=== PATIENT | female | born 1950 | race Caucasian/White ===

== ENCOUNTER 2016-07-22 19:17 | Emergency (ER) | payer MEDICARE, OTHER ==
[~2016-07-22] VITALS: Ht 165.1 cm; Wt 100.0 kg
[~2016-07-22 19:17] MED LIST: FISH1000 PO; PAXI20TA26 PO; SIMV20 PO
[2016-07-22] MEDS ORDERED: SODIUM CHLOR 0.9% 1000 ML INJ 1,000 ML IV SCH (19:31)
[2016-07-22 19:35] VITALS: BP 146/66; PULSE 65; RESP 18; TEMP 98.2; O2SAT 98
[2016-07-22 19:39] VITALS: O2SAT 93
--- NOTE | 2016-07-22 19:43 | PD ---
HPI Chief Complaint: GI Complaint Time Seen by Provider: 19:30 Travel History International Travel<30 days: No Contact w/Intl Traveler<30days: No Traveled to known affect area: No History of Present Illness HPI 66-year-old female presents to the emergency department from home by EMS transport for evaluation of syncopal episode witnessed by spouse patient was having a diarrheal stool on the toilet. According to the patient who is awake and able to relay her own history; last evening started noticing some abdominal discomfort which was on and off overnight this seemed to resolve and then today was active rode her bicycle; had a peanut butter for breakfast and then had a hamburger at lunchtime, and then later thereafter started having nausea and diarrhea and vomiting. No hematemesis, no coffee-ground emesis, no bilious emesis, no melena, or hematochezia. Patient states while she was on the toilet she had copious diarrhea and then felt as if she needed to continue to have diarrhea but no stool was noted and as she rested back she started to feel funny yelled out for her in the next thing she realized she was awakening on the floor with her over top of her. According to EMS report has been did not witness any seizure activity. According to EMS report en route to the hospital she was incontinent of stool. Patient had ongoing nausea without vomiting receive one dose of Zofran and symptoms seem to improve. Patient here denies any pain. No headache no confusion no visual disturbance no chest pain no palpitations no shortness of breath no abdominal pain no back pain no flank pain no upper or lower extremity numbness tingling or weakness. Patient has history of dyslipidemia. Patient denies personal history of CAD, hypertension, diabetes, peptic ulcer disease, pancreatitis, or gallbladder disease. [facility] Past Medical History Narrative Medical Dyslipidemia, kidney stones, cholecystectomy, bladder surgery, prior tobacco use ; nursing notes reviewed Blood Disorders: No Cancer: No Cardiovascular Problems: No Endocrine: No Immune Disorder: No Kidney Stones: Yes (WITH SURGICAL INTERVENTION) Musculoskeletal: No Neurologic: No Psychiatric: No Respiratory: No ?: Not Past Surgical History AICD: No Arteriovenous Shunt: No Cholecystectomy: Yes Genitourinary Surgery: Yes (BLADDER SUREGERY) Hysterectomy: Yes Insulin Pump: No Joint Replacement: No Pacemaker: No Social History Alcohol Use: No Tobacco Use: Yes (1/2 PPD) Substance Use: No Allergies-Medications (Allergen,Severity, Reaction): Coded Allergies: No Known Allergies (Verified , 11/05/10) Reported Meds & Prescriptions Reported Meds & Active Scripts Active Reported Multi Vitamin (Multiple Vitamin) 1 Tab Tab 1 Tab PO DAILY Levothyroxine (Levothyroxine Sodium) 100 Mcg Tab 100 Mcg PO DAILY Paxil (Paroxetine HCl) 20 Mg Tab 20 Mg PO DAILY Simvastatin 40 Mg Tab 40 Mg PO HS Review of Systems Except as stated in HPI: all other systems reviewed are Neg General / Constitutional: No: Fever, Chills HENT: No: Vertigo, Lightheadedness, Congestion Cardiovascular: Positive: Syncope, No: Chest Pain or Discomfort, Palpitations , Diaphoresis, Dyspnea on exertion Respiratory: No: Shortness of Breath Gastrointestinal: Positive: Nausea, Vomiting, Diarrhea, Abdominal Pain ( intermittent with vomiting or with diarrhea) Genitourinary: No: Urgency, Frequency, Dysuria Musculoskeletal: No: Myalgias, Arthralgias Skin: No Rash Neurologic: Positive: Weakness, Syncope, No: Dizziness, Focal Abnormalities, Coordination Problem, Ataxia, Headache, Change in Mentation, Slurred Speech, Paresthesia, Incontinence, Seizures Psychiatric: No: Anxiety Endocrine: No: Heat Intolerance, Cold Intolerance Hematologic/Lymphatic: No: Easy Bruising Physical Exam Narrative GENERAL: Well-developed well-nourished female in no acute distress no respiratory distress; GCS 15; no slurred speech no stridor or hoarseness. SKIN: Warm and dry. HEAD: Atraumatic. Normocephalic. EYES: Pupils equal and round. No scleral icterus. No injection or drainage. ENT: No nasal bleeding or discharge. Mucous membranes pink and moist. NECK: Trachea midline. No JVD. Supple no meningismus no nuchal rigidity no midline tenderness to direct palpation along the cervical spine no bony step- off. CARDIOVASCULAR: Regular rate and rhythm. Radial and dorsalis pedis pulses are 2 + to palpation bilaterally. RESPIRATORY: No accessory muscle use. Clear to auscultation. Breath sounds equal bilaterally. GASTROINTESTINAL: Abdomen soft, non-tender, nondistended. Hepatic and splenic margins not palpable. No guarding or rebound no palpable pulsatile mass. MUSCULOSKELETAL: Extremities without clubbing, cyanosis, or edema. No obvious deformities. NEUROLOGICAL: Awake and alert. GCS 15. No obvious cranial nerve deficits. Motor grossly within normal limits. Five out of 5 muscle strength in the arms and legs. Sensory exam grossly intact. Normal speech. PSYCHIATRIC: Appropriate mood and affect; insight and judgment normal. Data Data Last Documented VS Vital Signs Date Time Temp Pulse Resp B/P Pulse Ox O2 Delivery O2 Flow Rate FiO2 07/22/16 22:59 76 139/69 07/22/16 22:56 16 07/22/16 19:39 93 Room Air 07/22/16 19:35 98.2 Orders Complete Blood Count With Diff (07/22/16 19:31) Comprehensive Metabolic Panel (07/22/16 19:31) Lipase (07/22/16 19:31) Prothrombin Time / Inr (Pt) (07/22/16:31) Act Partial Throm Time (Ptt) (07/22/16:31) Urinalysis - C+S If Indicated (07/22/16 19:31) Ct Abd/Pel W Iv Contrast(Rout) (07/22/16 19:31) Iv Access Insert/Monitor (07/22/16 19:31) Ecg Monitoring (07/22/16 19:31) Oximetry (07/22/16 19:31) Sodium Chlor 0.9% 1000 Ml Inj (Ns 1000 M (07/22/16 19:31) Sodium Chloride 0.9% Flush (Ns Flush) (07/22/16 19:45) Electrocardiogram (07/22/16 19:31) Chest, Single Ap (07/22/16 19:31) Troponin I (07/22/16 19:31) Ct Brain W/O Iv Contrast(Rout) (07/22/16 ) Magnesium (Mg) (07/22/16 19:31) Iohexol 350 Inj (Omnipaque 350 Inj) (07/22/16 21:22) Orthostatic Vital Signs (07/22/16 21:48) Sodium Chlorid 0.9% 500 Ml Inj (Ns 500 M (07/22/16 23:15) Sodium Chlorid 0.9% 500 Ml Inj (Ns 500 M (07/23/16 00:00) Potassium Chloride (Kcl) (07/23/16 00:00) Labs Laboratory Tests Test 07/22/16 07/22/16 19:39 23:00 White Blood Count 11.4 TH/MM3 Red Blood Count 4.40 MIL/MM3 Hemoglobin 13.4 GM/DL Hematocrit 40.2 % Mean Corpuscular Volume 91.2 FL Mean Corpuscular Hemoglobin 30.5 PG Mean Corpuscular Hemoglobin 33.5 % Concent Red Cell Distribution Width 14.8 % Platelet Count 249 TH/MM3 Mean Platelet Volume 8.4 FL Neutrophils (%) (Auto) 71.5 % Lymphocytes (%) (Auto) 18.3 % Monocytes (%) (Auto) 8.1 % Eosinophils (%) (Auto) 1.8 % Basophils (%) (Auto) 0.3 % Neutrophils # (Auto) 8.1 TH/MM3 Lymphocytes # (Auto) 2.1 TH/MM3 Monocytes # (Auto) 0.9 TH/MM3 Eosinophils # (Auto) 0.2 TH/MM3 Basophils # (Auto) 0.0 TH/MM3 CBC Comment DIFF FINAL Differential Comment Prothrombin Time 10.5 SEC Prothromb Time International 1.0 RATIO Ratio Activated Partial 23.1 SEC Thromboplast Time Sodium Level 144 MEQ/L Potassium Level 3.4 MEQ/L Chloride Level 107 MEQ/L Carbon Dioxide Level 27.8 MEQ/L Anion Gap 9 MEQ/L Blood Urea Nitrogen 16 MG/DL Creatinine 0.76 MG/DL Estimat Glomerular Filtration 76 ML/MIN Rate Random Glucose 98 MG/DL Calcium Level 8.2 MG/DL Magnesium Level 2.2 MG/DL Total Bilirubin 0.2 MG/DL Aspartate Amino Transf 17 U/L (AST/SGOT) Alanine Aminotransferase 26 U/L (ALT/SGPT) Alkaline Phosphatase 113 U/L Troponin I LESS THAN 0.02 NG/ML Total Protein 7.2 GM/DL Albumin 3.7 GM/DL Lipase 133 U/L Urine Color LIGHT-YELLOW Urine Turbidity CLEAR Urine pH 6.0 Urine Specific [place] GREATER THAN 1.050 Urine Protein TRACE mg/dL Urine Glucose (UA) NEG mg/dL Urine Ketones NEG mg/dL Urine Occult Blood NEG Urine Nitrite NEG Urine Bilirubin NEG Urine Urobilinogen LESS THAN 2.0 MG/DL Urine Leukocyte Esterase NEG Urine RBC LESS THAN 1 /hpf Urine WBC 3 /hpf Urine Squamous Epithelial 1 /hpf Cells Urine Bacteria RARE /hpf Urine Mucus FEW /lpf Microscopic Urinalysis Comment CULT NOT INDICATED MDM Medical Decision Making Medical Screen Exam Complete: Yes Emergency Medical Condition: Yes Medical Record Reviewed: Yes Interpretation(s) EKG sinus rhythm rate [address] elevation or injury pattern change noted CK: 113, not elevated; troponin I less than 0.02, not elevated Urinalysis: Specific gravity greater than 1.050 otherwise denies grossly normal range Last Impressions Chest X-Ray 07/22/161930 Signed Impressions: Service Date/Time: Friday, July 22, 2016 19:52 - CONCLUSION: No acute disease. Pierre Contreras MD Abdomen/Pelvis CT 07/22/161930 Signed Impressions: Service Date/Time: Friday, July 22, 2016 21:19 - CONCLUSION: No acute CT findings in the abdomen or pelvis. Pierre Contreras MD Head CT 07/22/16 0000 Signed Impressions: Service Date/Time: Friday, July 22, 2016 21:16 - CONCLUSION: Normal examination. Pierre Contreras MD CBC & BMP Diagram 07/22/16 19:39 Differential Diagnosis Syncope, seizure, arrhythmia, electrolyte disturbance, vasovagal syncope, gastroenteritis, food borne illness, UTI, ICH, TIA, CVA, ACS, TN, PE, biliary colic, pancreatitis, aortic dissection, aneurysm Narrative Course Patient placed on surveillance monitor IV access obtained specimens collected and sent for resulting patient asymptomatic at this time after Zofran 4 mg IV denies any nausea no vomiting no abdominal pain no chest pain no back pain no dizziness no shortness of breath no recent febrile illness patient states she feels well at this time. EKG is sinus rhythm no acute ST elevation or injury pattern change noted CBC is automated differential total white cell count 11,900 nonspecific elevation with 71.5% neutrophils otherwise values in normal range; chemistries remarkable for mild hypokalemia 3.4; CK normal range troponin I less than 0.[address] brain noncontrast reveals no acute abnormality chest x-ray no lobar infiltrate or subdiaphragmatic free air CT abdomen and pelvis reveals no acute abnormality It's 9:50 PM patient feels well voicing no concerns or complaints no nausea no vomiting no abdominal pain continues to deny any chest pain shortness of breath sweats referred neck jaw back shoulder arm or abdominal pain. Orthostatic measurements ordered. Urinalysis pending. Urinalysis shows specific greater than 1.050; patient given fluid bolus; patient asymptomatic with orthostatic measurements; patient presents as gastroenteritis with vasovagal syncope; patient given replacement of potassium with oral replacement tolerated well; patient taking oral hydration well; patient appears stable for outpatient management Diagnosis Primary Impression: Vasovagal syncope Additional Impressions: Gastroenteritis Dehydration Hypokalemia Referrals: Primary Care Physician 1 day Patient Instructions: General Instructions Additional Instructions: Follow clear liquid diet for next 12-24 hours advance as tolerated to bland/ Kash diet then regular diet avoiding fried and fatty foods Follow-up with your primary care physician call office in a.m. to schedule follow-up appointment this week Return to the emergency department for any concerns or change in condition Use Zofran as prescribed as needed for nausea and/or vomiting Increase fluid hydration May use acetaminophen/Tylenol as needed for fever 100.4F or greater per package directions Med/Other Pt SpecificInfo: Prescription(s) given Scripts Ondansetron Odt (Zofran Odt)4 Mg Tab4 Mg SL Q6HR PRN (Nausea/Vomiting) #10 TAB Ref 0 Prov:An Coombs MD 07/23/16 Disposition: 01 DISCHARGE HOME Condition: Stable An Coombs MD July 22, 2016 19:43
[2016-07-22] MEDS ORDERED: SODIUM CHLORIDE 0.9% FLUSH 10 ML FLUSH IV FLUSH PRN (19:45)
--- NOTE | 2016-07-22 19:56 | RADRPT ---
EXAM DATE/TIME: 07/22/2016 19:52 [facility] COMPARISON: No previous studies available for comparison. INDICATIONS : Syncope. MEDICAL HISTORY : None. SURGICAL HISTORY : Cholecystectomy. ENCOUNTER: Initial ACUITY: 1 day PAIN SCORE: 0/10 LOCATION: Bilateral chest FINDINGS: A single view of the chest demonstrates the lungs to be symmetrically aerated without evidence of mas s, infiltrate or effusion. The cardiomediastinal contours are unremarkable. Osseous structures are intact. CONCLUSION: No acute disease. Pierre Contreras MD on July 22, 2016 at 19:53 Board Certified Radiologist. This report was verified electronically.
[2016-07-22 20:22] LABS: AUTOMATED NEUTROPHIL # 8.1 TH/MM3 (1.8-7.7); BASOPHIL % 0.3 % (0.0-2.0); EOSINOPHIL # 0.2 TH/MM3 (0-0.4); EOSINOPHIL % 1.8 % (0.0-4.0); HEMATOCRIT 40.2 % (35.0-46.0); HEMO FLAGS DIFF FINAL; LYMPH % 18.3 % (9.0-44.0); LYMPHOCYTE # 2.1 TH/MM3 (1.0-4.8); MEAN CELL VOLUME 91.2 FL (80.0-100.0); MEAN CORPUSCULAR HEMOGLOBIN 30.5 PG (27.0-34.0); MEAN CORPUSCULAR HGB CONC 33.5 % (32.0-36.0); MONO % 8.1 % (0.0-8.0); NEUT % 71.5 % (16.0-70.0); PLATELET COUNT 249 TH/MM3 (150-450); RED CELL DISTRIBUTION WIDTH 14.8 % (11.6-17.2); WHITE BLOOD COUNT 11.4 TH/MM3 (4.0-11.0)
[2016-07-22 20:47] LABS: ANION GAP 9 MEQ/L (5-15); AST (GOT) 17 U/L (15-37); BICARBONATE 27.8 MEQ/L (21.0-32.0); BLOOD UREA NITROGEN 16 MG/DL (7-18); CHLORIDE 107 MEQ/L (98-107); GLOMERULAR FILTRATION RATE 76 ML/MIN (>89); MAGNESIUM 2.2 MG/DL (1.5-2.5); POTASSIUM 3.4 MEQ/L (3.5-5.1); SODIUM (NA) 144 MEQ/L (136-145)
[2016-07-22 20:52] LABS: ALKALINE PHOSPHATASE 113 U/L (45-117); ALT (GPT) 26 U/L (10-53); TOTAL BILIRUBIN ADULT 0.2 MG/DL (0.2-1.0)
[2016-07-22 20:55] LABS: APTT (PATIENT) 23.1 SEC (24.3-30.1); PROTHROMBIN TIME - PATIENT 10.5 SEC (9.8-11.6)
[2016-07-22] MEDS ORDERED: LEVO100T5 PO (21:08)
[2016-07-22] MEDS ORDERED: PAXI20TA PO (21:08)
[2016-07-22] MEDS ORDERED: MULT-135 PO (21:08)
[2016-07-22] MEDS ORDERED: SIMV40TA PO (21:08)
[2016-07-22] MEDS ORDERED: IOHEXOL 350 MG/ML 10 ML VIAL (for RAD DIAG) IV ONE (21:22)
--- NOTE | 2016-07-22 21:35 | RADRPT ---
EXAM DATE/TIME: 07/22/2016 21:16 [facility] COMPARISON: No previous studies available for comparison. INDICATIONS : Syncope. RADIATION DOSE: 56.35 CTDIvol (mGy) MEDICAL HISTORY : Renal calculi. SURGICAL HISTORY : Cholecystectomy. Hysterectomy. ENCOUNTER: Initial ACUITY: 1 day PAIN SCALE: 0/10 LOCATION: cranial TECHNIQUE: Multiple contiguous axial images were obtained of the head. Using automated exposure control and adj ustment of the mA and/or kV according to patient size, radiation dose was kept as low as reasonably a chievable to obtain optimal diagnostic quality images. FINDINGS: CEREBRUM: The ventricles are normal for age. No evidence of midline shift, mass lesion, hemorrhage or acute in farction. No extra-axial fluid collections are seen. POSTERIOR FOSSA: The cerebellum and brainstem are intact. The 4th ventricle is midline. The cerebellopontine angle i s unremarkable. EXTRACRANIAL: The visualized portion of the orbits is intact. SKULL: The calvaria is intact. No evidence of skull fracture. CONCLUSION: Normal examination. Pierre Contreras MD on July 22, 2016 at 21:27 Board Certified Radiologist. This report was verified electronically.
--- NOTE | 2016-07-22 21:43 | RADRPT ---
EXAM DATE/TIME: 07/22/2016 21:19 [facility] COMPARISON: No previous studies available for comparison. INDICATIONS : Abdomen pain with diarrhea. IV CONTRAST: 97 cc Omnipaque 350 (iohexol) IV ORAL CONTRAST: No oral contrast ingested. RADIATION DOSE: 9.96 CTDIvol (mGy) MEDICAL HISTORY : Renal calculi. SURGICAL HISTORY : Cholecystectomy. Hysterectomy. ENCOUNTER: Initial ACUITY: 1 day PAIN SCALE: 2/10 LOCATION: Bilateral abdomen TECHNIQUE: Volumetric scanning of the abdomen and pelvis was performed. Using automated exposure control and ad justment of the mA and/or kV according to patient size, radiation dose was kept as low as reasonably achievable to obtain optimal diagnostic quality images. FINDINGS: LOWER LUNGS: Minimal basilar atelectasis LIVER: Homogeneous density without lesion. There is no dilation of the biliary tree. Gallbladder surgically absent. SPLEEN: Normal size without lesion. Splenule adjacent to the anterior splenic hilum PANCREAS: Within normal limits. KIDNEYS: Normal in size and shape. There is no mass, stone or hydronephrosis. ADRENAL GLANDS: Within normal limits. VASCULAR: There is no aortic aneurysm. BOWEL/MESENTERY: Occasional distal colonic diverticula. No abnormal dilatation or focal inflammatory change identified . ABDOMINAL WALL: Within normal limits. RETROPERITONEUM: There is no lymphadenopathy. BLADDER: No wall thickening or mass. REPRODUCTIVE: Uterus surgically absent. No evidence of pelvic mass or free fluid. INGUINAL: There is no lymphadenopathy or hernia. MUSCULOSKELETAL: Within normal limits for patient age. CONCLUSION: No acute CT findings in the abdomen or pelvis. Pierre Contreras MD on July 22, 2016 at 21:37 Board Certified Radiologist. This report was verified electronically.
[2016-07-22 22:56] VITALS: BP 151/70; PULSE 69; RESP 16
[2016-07-22 22:57] VITALS: BP 148/64
[2016-07-22 22:59] VITALS: BP_SYST 139; BP_SYST 161; BP_DIAS 69; BP_DIAS 76
[2016-07-22] MEDS ORDERED: SODIUM CHLORID 0.9% 500 ML INJ 500 ML IV ONE (23:15)
[2016-07-22 23:32] LABS: BACTERIA, URINE RARE /hpf; BLOOD, URINE NEG (NEG); COMMENT (UR) CULT NOT INDICATED; CULTURE IF INDICATED CULT NOT INDICATED; GLUCOSE,URINE NEG (NEG); KETONE, URINE NEG (NEG); MUCUS URINE FEW /lpf (OCC); NITRITE,URINE NEG (NEG); SQUAMOUS EPITHELIAL CELL URINE 1 /hpf (0-5); URINE COLOR LIGHT-YELLOW (YELLW/STRAW)
[2016-07-23] MEDS ORDERED: SODIUM CHLORID 0.9% 500 ML INJ 500 ML IV ONE
[2016-07-23] MEDS ORDERED: POTASSIUM CHLORIDE 20 MEQ CONTROLLED RELEASE TAB PO ONE
[2016-07-23] MEDS ORDERED: ZOFR4TAB3 SL (00:39)
--- NOTE | 2016-07-23 16:22 | EKG ---
Date Performed: 07/22/2016 Time Performed: 19:43:00 PTAGE: 66 years EKG: Sinus rhythm ARM LEADS REVERSED ATYPICAL ECG CONSIDER ANTEROSEPTAL ISCHEMIA, WHICH IS NEW COMPARED TO PREVIOUS. PREVIOUS TRACING : 09/25/2006 16.03 DOCTOR: Carlyle Romano Interpretating Date/Time 07/23/2016 16:21:29
== END 2016-07-23 01:03 | disposition home or self-care (01) ==
LOC: NEPC 19:17
DX: R55 Syncope and collapse (principal); K52.9 Noninfective gastroenteritis and colitis, unspecified; E86.0 Dehydration; E87.6 Hypokalemia; R19.7 Diarrhea, unspecified; E78.5 Hyperlipidemia, unspecified; F17.210 Nicotine dependence, cigarettes, uncomplicated; R11.2 Nausea with vomiting, unspecified; R94.31 Abnormal electrocardiogram [ECG] [EKG]; Z87.442 Personal history of urinary calculi
CPT/HCPCS: 70450; 71010; 74177; 80053; 81001; 83690; 83735; 84484; 85025; 85610; 85730; 93005; 99285; J7030; J7040; Q9967